=== PATIENT | female | born 1990 | race African-American/Black ===

== ENCOUNTER 2021-12-30 23:15 | Emergency (ER) | payer OTHER ==
[~2021-12-30] VITALS: Ht 172.7 cm; Wt 55.8 kg
[2021-12-30 23:26] VITALS: BP 119/54
--- NOTE | 2021-12-30 23:32 | NUR ---
PT TO LOBBY WITH URINE CUP
--- NOTE | 2021-12-31 01:29 | NUR ---
called for pt. per admitting, pt left.
--- NOTE | 2021-12-31 01:32 | NUR ---
CALLED FOR PT- NO ANSWER
--- NOTE | 2021-12-31 01:50 | NUR ---
CALLED FOR PT NO ANSWER
--- NOTE | 2021-12-31 01:50 | NUR ---
PATIENT LEFT WITHOUT BEING SEEN BY DR. BARNEY. NO FURTHER CARE PROVIDED FOR PATIENT.
== END 2021-12-31 01:50 | disposition left against medical advice (07) ==
LOC: MED 23:15
DX: R10.2 Pelvic and perineal pain (principal); Z53.21 Procedure and treatment not carried out due to patient leaving prior to being seen by health care provider